=== PATIENT | male | born 1935 | race Caucasian/White ===

== ENCOUNTER 2016-06-24 13:53 | Emergency (ER) | payer MEDICARE, OTHER | END 2016-06-24 15:47 | disposition home or self-care (01) | LOC: ER 13:53 | DX: R55 Syncope and collapse (principal); E11.9 Type 2 diabetes mellitus without complications; I11.9 Hypertensive heart disease without heart failure; I25.10 Atherosclerotic heart disease of native coronary artery without angina pectoris; Z86.73 Personal history of transient ischemic attack (TIA), and cerebral infarction without residual deficits; Z79.01 Long term (current) use of anticoagulants; Z79.899 Other long term (current) drug therapy; Z79.84 Long term (current) use of oral hypoglycemic drugs; Z87.891 Personal history of nicotine dependence | CPT/HCPCS: 36415; 70450; 80053; 82553; 82947; 84484; 85025; 85610; 85730; 93005 ==